=== PATIENT | female | born 1995 | race Caucasian/White ===

== ENCOUNTER → 2023-11-09 | Outpatient (CLI) | payer OTHER ==
[2023-11-09 08:06] LABS: BASO # 0.02 K/mm3 (0.02-0.10); EOS # 0.22 K/mm3 (0.04-0.40); EOS % 3.2 % (1.0-5.0); HEMOGLOBIN 13.2 g/dL (12.5-16.0); LYMPH# 2.89 K/mm3 (1.50-4.00); MEAN CELL VOLUME 90 fl (78-100); MEAN CORPUSCULAR HEMOGLOBIN 28 pg (27-31); MEAN CORPUSCULAR HGB CONC 31 g/dL (33-37); MEAN PLATELET VOLUME 9.7 fl (7.4-10.4); MONO # 0.45 K/mm3 (0.20-0.80); NEU # 3.22 K/mm3 (1.40-6.50); PLATELET COUNT 384 K/mm3 (130-400); RED BLOOD COUNT 4.65 M/mm3 (4.10-5.30); WHITE BLOOD COUNT 6.8 K/mm3 (4.8-10.8)
[2023-11-09 08:08] LABS: ALBUMIN 4.3 g/dL (3.5-5.0)
[2023-11-09 08:09] LABS: CALCIUM 9.8 mg/dL (8.3-10.5)
[2023-11-09 08:10] LABS: TOTAL PROTEIN 6.9 g/dL (6.4-8.3)
[2023-11-09 08:12] LABS: TOTAL BILIRUBIN 1.2 mg/dL (0.2-1.2)
[2023-11-09 08:17] LABS: MAGNESIUM 1.98 mg/dL (1.60-2.60)
== END ==
LOC: LAB 07:17
PROVIDERS: Nurse Practitioner
DX: G25.81 Restless legs syndrome (principal); R53.83 Other fatigue

== ENCOUNTER → 2024-01-11 | Outpatient (CLI) | payer OTHER | LOC: LAB 15:08 | DX: Z32.01 Encounter for pregnancy test, result positive (principal) ==

== ENCOUNTER 2024-04-20 18:40 | Emergency (ER) | payer OTHER ==
[~2024-04-20] VITALS: Ht 167.6 cm; Wt 75.0 kg
[2024-04-20] MEDS ORDERED: VITAFOL-OB+DHA1 KIT PO (18:48)
[2024-04-20] MEDS ORDERED: NS 1,000 ML IV SCH (19:15)
[2024-04-20] MEDS ORDERED: Ondansetron 4 MG/2 ML VIAL IV ONE (19:15)
[2024-04-20 19:43] LABS: BASO # 0.01 K/mm3 (0.02-0.10); EOS # 0.17 K/mm3 (0.04-0.40); EOS % 2.6 % (1.0-5.0); HEMOGLOBIN 10.9 g/dL (12.5-16.0); LYMPH# 2.42 K/mm3 (1.50-4.00); MEAN CELL VOLUME 91 fl (78-100); MEAN CORPUSCULAR HEMOGLOBIN 30 pg (27-31); MEAN CORPUSCULAR HGB CONC 33 g/dL (33-37); MEAN PLATELET VOLUME 9.7 fl (7.4-10.4); MONO # 0.59 K/mm3 (0.20-0.80); NEU # 3.33 K/mm3 (1.40-6.50); PLATELET COUNT 251 K/mm3 (130-400); RED BLOOD COUNT 3.61 M/mm3 (4.10-5.30); RED CELL DISTRIBUTION WIDTH 13.5 % (11.5-14.5); WHITE BLOOD COUNT 6.5 K/mm3 (4.8-10.8)
[2024-04-20 19:52] LABS: CALCIUM 8.4 mg/dL (8.3-10.5)
[2024-04-20 19:53] LABS: TOTAL PROTEIN 5.3 g/dL (6.4-8.3)
[2024-04-20 19:55] LABS: TOTAL BILIRUBIN 0.6 mg/dL (0.2-1.2)
[2024-04-20 20:09] LABS: PH-URINE 6.5 (5.0 - 8.0); URINE APPEARANCE SLIGHTLY CLOUDY (CLEAR); URINE BILIRUBIN NEGATIVE (NEGATIVE); URINE COLOR YELLOW (YELLOW); URINE GLUCOSE NEGATIVE (NEGATIVE); URINE KETONE 1+ (NEGATIVE); URINE PROTEIN(semi-quant) NEGATIVE (NEGATIVE)
[2024-04-20 20:10] LABS: URINE BLOOD NEGATIVE (NEGATIVE); URINE LEUKOCYTE ESTERASE 2+ (NEGATIVE); URINE MUCUS PRESENT (NOT PRESENT); URINE NITRATE NEGATIVE (NEGATIVE)
[2024-04-20] MEDS ORDERED: REGLAN10 M2 PO (20:24)
[2024-04-20] MEDS ORDERED: Metoclopramide 10 MG TAB PO ONE (20:30)
[2024-04-20 20:41] VITALS: BP 125/72
== END 2024-04-20 20:50 | disposition home or self-care (01) ==
LOC: ED 18:40
PROVIDERS: Physician Assistant
DX: O99.612 Diseases of the digestive system complicating pregnancy, second trimester (principal); A08.4 Viral intestinal infection, unspecified; Z3A.18 18 weeks gestation of pregnancy
CPT/HCPCS: J2405; J2765; J7030